=== PATIENT | male | born 1960 | race Caucasian/White ===

== ENCOUNTER → 2020-10-02 10:48 | Outpatient (CLI) | payer OTHER, SELFPAY ==
[2020-10-01 16:02] VITALS: BMI 32.5
--- NOTE | 2020-10-02 | CYST_PTH ---
PATIENT: BERTIN CHATTERJEE LOC: [facility] U#:[id number] AGE/SX: 64/M ROOM: RE10/02/[address]: Dr. Pedro Dennis MD : 1960 BED: DIS: SPEC #: [id number] RECD: 10/02/20 11:48 STATUS: ARAMIS ROSI #: [id number] TISH: 10/02/20 00:[address]: Pedro Dennis DEPT: SURGICAL PATHOLOGY RECD BY: Kale Boland ENTERED: 10/02/20 11:48 SP TYPE: Cyst OTHR DR: Dr. Hosea Porras MD Tissues: CYST Procedures: Surgery Specimen Level IV HEADER OPERATION: Excision of left shoulder cyst PRE-OP DIAGNOSIS: Left shoulder cyst TISSUE SUBMITTED: Left shoulder cyst MICROSCOPIC DIAGNOSIS Left shoulder cyst, excision: Epidermal inclusion cyst. Focal changes consistent with seborrheic keratosis. Intradermal nevus (0.3 cm in greatest dimension). Dermal fibrosis and chronic inflammation. ROHIT:raymond 10/06/2020 MICROSCOPIC DESCRIPTION Slides are reviewed. GROSS DESCRIPTION Received in fixative is one container labeled with the patient's name and designated left shoulder cyst. The specimen consists of a piece of skin with underlying tissue measuring 4 x 1.9 cm and up to 2 cm in thickness. The specimen is inked and serially sectioned and reveal a cyst filled with [place]-white cheesy material measuring 1 cm in greatest dimension. Insurance Adjuster sections are submitted in four cassettes. Cassette 1 also contains the tips of the skin ellipse. / ROHIT:raymond 10/02/20 The rest of the specimen is submitted in four more cassettes. / ROHIT:raymond 10/05/20 TC:1 CPT: 60556
== END ==
PROVIDERS: PCP Family Medicine; Referring Provider Surgery; Visit Provider Surgery
DX: L72.0 Epidermal cyst (principal)
CPT/HCPCS: 88304; 88305